=== PATIENT | male | born 1990 | race Caucasian/White ===

== ENCOUNTER 2019-12-09 08:35 | Emergency (ER) | payer OTHER ==
[2019-12-09] MEDS ORDERED: DIPH,PERTUS(ACELL)TETVAC-LF 0.5 ML VIAL IM ONE (08:38)
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
--- NOTE | 2019-12-09 09:13 | XR ---
Right knee HISTORY: Trauma and pain 4 views of the right knee Bone mineralization, joint spaces and alignment are maintained. No sizable joint effusion. Minimal vuong prapatellar increased density may represent minimal effusion. IMPRESSION: No fracture or dislocation.
--- NOTE | 2019-12-09 09:13 | XR ---
Left elbow HISTORY: Trauma and pain 3 views of the left elbow Bone mineralization, joint spaces and alignment are maintained. No evident joint effusion. IMPRESSION: No fracture or dislocation.
== END 2019-12-09 09:54 | disposition home or self-care (01) ==
LOC: EC 08:35
DX: S50.02XA Contusion of left elbow, initial encounter (principal); S86.911A Strain of unspecified muscle(s) and tendon(s) at lower leg level, right leg, initial encounter; S70.311A Abrasion, right thigh, initial encounter; Z23 Encounter for immunization; V89.2XXA Person injured in unspecified motor-vehicle accident, traffic, initial encounter; Y92.410 Unspecified street and highway as the place of occurrence of the external cause; Y99.0 Civilian activity done for income or pay
CPT/HCPCS: 71045; 72170; 90471; 90715; 99284